=== PATIENT | male | born 1940 | race Caucasian/White ===

== ENCOUNTER 2016-05-19 15:20 | Emergency (ER) | payer OTHER ==
[2016-05-19 16:33] VITALS: BP 150/90; PULSE 88; RESP 18; TEMP 97.3; O2SAT 98
[2016-05-19] MEDS ORDERED: IBUPROFEN 200 MG TAB PO ONE (16:34)
[2016-05-19] MEDS ORDERED: ONDANSETRON DISINTEGRATING 4 MG TAB PO ONE (16:34)
[2016-05-19] MEDS ORDERED: IBUPROFEN 600 MG TAB PO ONE (16:36)
--- NOTE | 2016-05-19 17:15 | UCPHY ---
H & P Patient Type: Established Smoking Status: Never smoked Time Seen by Provider: 05/19/16 16:57 HPI/ROS: CHIEF COMPLAINT: Cough, congestion, sore throat x2 weeks HISTORY OF PRESENT ILLNESS: 75 year old immunocompetent male complaining of 2 weeks sinus pressure, nasal congestion, sore throat, nonproductive cough. He received influenza vaccination 6 days ago notes that his symptoms continue. He denies: Fever, chills, chest pain, back pain, abdominal pain, nausea, vomiting , urinary abnormality, international travel, dyspnea PRIMARY CARE PROVIDER: Dr. Erika Dhaliwal REVIEW OF SYSTEMS: A ten point review of systems was performed and is negative with the exception of the items mentioned in the HPI PAST MEDICAL & SURGICAL HISTORY: No history of chronic pulmonary pathology SOCIAL HISTORY: nonsmoker PHYSICAL EXAM (Prior to examination, patient consented to physical exam, hands were washed and my usual and customary physical exam procedures followed) 1) GENERAL: Well-developed, well-nourished, alert and oriented. Appears Nontoxic, answering questions appropriately. 2) HEAD: Normocephalic, atraumatic 3) HEENT: Pupils equal, round, reactive to light bilaterally. Sclera anicteric. Nasopharynx: Congestion. Oropharynx: Clear, no erythema, no tonsillar enlargement or exudate, no trismus no drooling. Ears bilaterally with clear effusion bilaterally with no bulging or erythema of the tympanic membrane. 4) NECK: Full range of motion, no meningeal signs. Tender to percussion maxillary sinuses. 5) LUNGS: Clear auscultation bilaterally, no wheezes, no rhonchi, no retractions. Breathing comfortably. Few speaking full sentences 6) HEART: Regular rate and rhythm, no murmur, no heave, no gallop. 7) ABDOMEN: No guarding, no rebound, no focal tenderness, negative McBurney's, negative Gloria's, negative Rovsing's, negative peritoneal sign, 8) MUSCULOSKELETAL: No peripheral edema or discoloration. 9) BACK: No CVA tenderness. 10) SKIN: No rash, no petechiae. 11) Psychiatric: Patient is oriented X 3, there is no agitation. DIFFERENTIAL DIAGNOSIS: in no particular include but not limited to meningitis , pneumonia, bronchitis, influenza (Giovana,Sebastian Jovita) Constitutional: Initial Vital Signs Temperature (C) 36.3 C 05/19/16 16:30 Heart Rate 88 05/19/16 16:30 Respiratory Rate 18 05/19/16 16:30 Blood Pressure 150/90 H 05/19/16 16:30 O2 Sat (%) 98 05/19/16 16:30 O2 Delivery Mode Room Air Allergies/Adverse Reactions: No Known Allergies Allergy (Verified 05/19/16 16:29) Home Medications: Medication Instructions Recorded Lipitor 10 mg (RX) 11/09/13 Aspirin 325 mg (OTC) 06/13/15 AZITHROMYCIN [Z-PACK] 500 mg PO DAILY #1 packet 05/19/16 Albuterol [Proventil Inhaler HFA 1 - 2 puffs IH Q4PRN PRN #1 mdi 05/19/16 (*)] Benzonatate [Tessalon Pearles (RX)] 200 mg PO TID PRN #15 cap 05/19/16 MDM/Departure - MDM Medications Given: Discontinued Medications Ibuprofen (Motrin) 400 mg PO EDNOW ONE Stop: 05/19/16 16:35 Last Admin: 05/19/16 16:57 Dose: 400 mg Ondansetron HCl (Zofran Odt) 4 mg PO EDNOW ONE Stop: 05/19/16 16:35 Last Admin: 05/19/16 16:38 Dose: 4 mg ED Course/Re-evaluation: This patient does not appear septic. He has maintain normal saturations, not tachycardic, not tachypneic, lungs are clear bilaterally. given the symptoms have been occurring for 2 weeks, I feel a trial of antibiotics is indicated. We discussed the indications for chest x-ray and informed him that I cannot rule out pneumonia at this time however I am recommending treating him with a course of antibiotics regardless. In addition as he he is maintain normal saturations and breathing comfortably in has clear lungs I do not think that chest imaging indicated. He also notes sinus pressure and discomfort. He has no nuchal rigidity, is answering questions appropriately, has a grossly normal neurologic examination. I think that encephalitis, meningitis, less than likely in this patient. Plan will be discharge with azithromycin, albuterol, Tessalon , strict return precautions and follow up with his primary care provider in 2 days. He and family member feel comfortable being discharged. All questions and concerns addressed by myself (Sebastian Akhtar) The patient was evaluated and managed by the Physician Supply Chain Director, Presley Akhtar. My co-signature indicates that I have reviewed this chart and I agree with the findings and plan of care as documented. I am the secondary supervising physician. (Rebecca Solis) - Depart Disposition: Home, Routine, Self-Care Clinical Impression: Sinusitis Qualifiers: Sinusitis location: maxillary Chronicity: acute Recurrence: not specified as recurrent Qualifier Code: (J01.00) Acute maxillary sinusitis, unspecified Condition: Good Instructions: Sinusitis (ED) Additional Instructions: Go to the closest emergency department if you developed worsening symptoms, if you develop shortness of breath, fevers, change in mental status, or any other symptoms that concern you Prescriptions: Albuterol [Proventil Inhaler HFA (*)] 1 - 2 puffs IH Q4PRN PRN #1 mdi PRN Reason: Cough, Moderate Benzonatate [Tessalon Pearles (RX)] 200 mg PO TID PRN #15 cap PRN Reason: Cough, Moderate AZITHROMYCIN [Z-PACK] 500 mg PO DAILY #1 packet Referrals: Shirley Dhaliwal MD [Primary Care Provider] - 1-2 days without fail - PQRS PQRS Measurement: 134: Depression screening and followup, PRIME MD-PHQ2 (12 years and older) Over the last 2 weeks, how often have you been bothered by any of the following problems? 1. Feeling down, depressed, or hopeless? 2. Little interest or pleasure in doing things? Patient answered no to both 1 and 2 130: Documentation of medications. Reviewed all patient medications, doses, route and frequency. 226: Do you smoke? No. 47: 65 and older: Advanced care planning. Patient has no advanced directive. 51: 18 years old and older with diagnosis of COPD, spirometry performance. Patient has no history of COPD 52: 18 years old and older with COPD and symptoms of COPD or FEV1<60% predicted prescribed a B Agonist. Not applicable (Sebastian Akhtar)
== END 2016-05-19 17:30 | disposition home or self-care (01) ==
LOC: CED 15:20
DX: J01.00 Acute maxillary sinusitis, unspecified (principal)
CPT/HCPCS: 99214-PO

== ENCOUNTER 2016-05-23 16:35 | Emergency (ER) | payer OTHER ==
[2016-05-23 16:47] VITALS: RESP 18; TEMP 98.1
[2016-05-23] MEDS ORDERED: IPRATROPIUM/ALBUTEROL 3 ML DEYVIAL IH ONE (17:17)
--- NOTE | 2016-05-23 17:20 | UCPHY ---
H & P Time Seen by Provider: 05/23/16 17:03 Patient Type: Established HPI/ROS: This patient presents with ongoing cough occasional wheeze from bronchitis. He was diagnosed with bronchitis on May 19 started on Zithromax and albuterol inhaler. He is also prescribed Tessalon Perles. Has had more wheezing and shortness of breath since around 4:00 a.m. today but he has not been using his albuterol inhaler. Apparently he did understand that he should use this for wheezing and cough. He was seen at [facility] Emergency Department given a single dose of steroids had a negative chest x-ray per his early this morning due to the symptoms. ROS: No high fevers or chills. HEENT: Coryza. No other complaints. Pulmonary : No pleuritic pain. No respiratory distress. No significant sputum production. Cardiovascular: No lightheadedness. No diaphoresis. No leg swelling. GI: No nausea vomiting. No complaints 10 point ROS is otherwise negative Past Medical/Surgical History: Dyslipidemia Recent bronchitis as noted in HPI. Otherwise healthy. Smoking Status: Never smoked Physical Exam: Vital signs normal with exception of hypertension 171/88 and O2 sat of 93% room air. General Appearance: Pleasant male in no acute distress appears younger than his stated age Alert, no distress. Eyes: Pupils equal and round no pallor or injection. ENT, Mouth: Mucous membranes moist. Respiratory: Mild bilateral expiratory wheeze and dry cough. No rales or rhonchi. Cardiovascular: Regular rate and rhythm. No JVD. No peripheral edema. Gastrointestinal: Abdomen is soft and nontender, no masses, bowel sounds normal. Neurological: Alert with no focal deficits Skin: Warm and dry, no rashes. Extremities are symmetrical, full range of motion. No calf tenderness DIFFERENTIAL DIAGNOSIS: After history and physical exam differential diagnosis was considered for bronchitis inadequately treated due to patient noncompliance with albuterol, pneumonia, influenza Constitutional: Initial Vital Signs Temperature (C) 36.7 C 05/23/16 16:45 Heart Rate 58 L 05/23/16 16:45 Respiratory Rate 18 05/23/16 16:45 Blood Pressure 171/88 H 05/23/16 16:45 O2 Sat (%) 93 05/23/16 16:45 O2 Delivery Mode Room Air Allergies/Adverse Reactions: No Known Allergies Allergy (Verified 05/19/16 16:29) Home Medications: Medication Instructions Recorded Lipitor 10 mg (RX) 11/09/13 Aspirin 325 mg (OTC) 06/13/15 AZITHROMYCIN [Z-PACK] 500 mg PO DAILY #1 packet 05/19/16 Albuterol [Proventil Inhaler HFA 1 - 2 puffs IH Q4PRN PRN #1 mdi 05/19/16 (*)] Benzonatate [Tessalon Pearles (RX)] 200 mg PO TID PRN #15 cap 05/19/16 Fluticasone Hfa 220 Mcg [Flovent 2 puffs IH DAILY #1 mdi 05/23/16 220 MCG Hfa MDI (*)] Medical Decision Making ED Course/Re-evaluation: This patient appears ray well clinically. I think his symptoms are simply ongoing cough and wheeze because he is not using his albuterol for his bronchitis due to a misunderstanding. We provided a spacer for him to use with his albuterol. Also provide Flovent steroid inhaler to help diminish any persistent inflammation. I do not think he has pneumonia or other complicating factors. - Data Points Medications Given: Discontinued Medications Albuterol/Ipratropium (Duoneb) 3 ml IH EDNOW ONE Stop: 05/23/16 17:18 Last Admin: 05/23/16 17:29 Dose: 3 ml Departure - Departure Disposition: Home, Routine, Self-Care Clinical Impression: Bronchitis Condition: Good Instructions: Acute Bronchitis (ED) Additional Instructions: Diagnosis: Acute bronchitis Plan: Humidifier Use the albuterol with spacer regularly-2 puffs every 4 hours as needed for cough, wheeze or shortness of breath Flovent steroid inhaler in addition Complete your Zithromax. Follow up with primary care physician for any ongoing symptoms Tylenol or ibuprofen if needed for sinus headache. Return for any significant worsening despite treatment plan or go to the emergency department Referrals: Shirley Dhaliwal MD [Primary Care Provider] - As per Instructions Prescriptions: Fluticasone Hfa 220 Mcg [Flovent 220 MCG Hfa MDI (*)] 2 puffs IH DAILY #1 mdi - PQRS PQRS Measurement: 134: Depression screening and followup, PRIME MD-PHQ2 (12 years and older) Over the last 2 weeks, how often have you been bothered by any of the following problems? 1. Feeling down, depressed, or hopeless? 2. Little interest or pleasure in doing things? Patient answered no to both 1 and 2 130: Documentation of medications. Reviewed all patient medications, doses, route and frequency. 226: Do you smoke? [No.] 47: 65 and older: Advanced care planning. Patient designates surrogate decision maker as spouse. 51: 18 years old and older with diagnosis of COPD, spirometry performance. NA 52: 18 years old and older with COPD and symptoms of COPD or FEV1<60% predicted prescribed a B Agonist. NA
[2016-05-23 17:54] VITALS: BP 165/90; PULSE 60; O2SAT 94
== END 2016-05-23 17:54 | disposition home or self-care (01) ==
LOC: CED 16:35
DX: J20.9 Acute bronchitis, unspecified (principal); E78.5 Hyperlipidemia, unspecified
CPT/HCPCS: 99214-PO; G0463-PO

== ENCOUNTER 2018-05-02 16:35 | Emergency (ER) | payer OTHER ==
[2018-05-02] MEDS ORDERED: IPRATROPIUM/ALBUTEROL 3 ML DEYVIAL IH ONE (17:22)
--- NOTE | 2018-05-02 17:36 | EDPHY ---
H & P Time Seen by Provider: 05/02/18 16:40 HPI/ROS: CHIEF COMPLAINT: Congestion, cough HISTORY OF PRESENT ILLNESS: Patient states "I do not feel sick but everything hurts". Per he has been sick for about 4 days. It started with nasal congestion, scratchy throat and progressed in to a persistent cough. He states that his throat, his chest, even his teeth hurt. The onset on was gradual. He denies fever. His cough is nonproductive and dry. He denies shortness of breath. He has had decreased appetite. His seems to think he is getting worse and came in for evaluation. They have tried Sudafed, Delsym , Claritin and Tylenol without much improvement. He has been sleeping a lot. Contents of 10 point review of systems otherwise negative except for what is mentioned in HPI. General Appearance: Alert, no distress. Eyes: Pupils equal and round no pallor or injection. ENT, Mouth: Mucous membranes moist. Respiratory: There are no retractions, lungs are clear with only occasional wheeze heard. Cardiovascular: Regular rate and rhythm. Gastrointestinal: Abdomen is soft and nontender, no masses, bowel sounds normal. Neurological: Alert, oriented, no focal neurologic deficits. Skin: Warm and dry, no rashes. Musculoskeletal: Neck is supple nontender. Extremities are symmetrical, full range of motion, no edema. Psychiatric: Patient is oriented X 3, there is no agitation. Medical/surgical history: High cholesterol, gastroesophageal reflux disease, surgeries include tonsillectomy and prostate surgery. Social history: Nonsmoker. Smoking Status: Never smoked Constitutional: Initial Vital Signs Temperature (C) 36.9 C 05/02/18 16:43 Heart Rate 77 05/02/18 16:43 Respiratory Rate 18 05/02/18 16:43 Blood Pressure 162/88 H 05/02/18 16:43 O2 Sat (%) 94 05/02/18 16:43 O2 Delivery Mode Room Air Allergies/Adverse Reactions: No Known Allergies Allergy (Verified 05/02/18 16:48) Home Medications: Medication Instructions Recorded Lipitor 10 mg (RX) 11/09/13 Albuterol Sulfate [Proair 1 - 2 puffs IH Q4-6PRN PRN #1 05/02/18 Respiclick] aer.[email or web address] Medical Decision Making Differential Diagnosis: Differential diagnosis includes but is not limited to strep pharyngitis, influenza, pneumonia, upper respiratory infection, CHF. After evaluation suspect patient with viral upper respiratory infection without evidence of lower airways disease. Low suspicion for serious bacterial infection. Talked about multiple [id number] means to control symptoms. Did prescribe albuterol inhaler for bronchitic symptoms as this has been effective for this patient in the past. Discussed signs and symptoms to cause revisit to the emergency department. Understands return precautions. Also encouraged follow- up with primary care physician. Stable for discharge. - Data Points Medications Given: Discontinued Medications Albuterol/Ipratropium (Duoneb) 3 ml IH EDNOW ONE Stop: 05/02/18 17:23 Last Admin: 05/02/18 17:29 Dose: 3 ml Point of Care Test Results: Influenza PCR Flu Nasal Swab Collection Date 05/02/18 Flu Nasal Swab Collection Time 17:00 Influenza A Result Not Detected Influenza B Result Not Detected Departure - Departure Clinical Impression: Acute bronchitis Qualifiers: Bronchitis organism: unspecified organism Qualified Code(s): J20.9 - Acute bronchitis, unspecified Condition: Good Instructions: Upper Respiratory Infection (ED), Acute Bronchitis (ED) Additional Instructions: Try the albuterol inhaler as discussed. He can use 1-2 puffs every 4-6 hours as needed for wheezing or cough. Robitussin DM at night will help prevent cough and hopefully allow you would get better sleep. [place] nasal spray can be effective as well. You should see your primary care physician next week for recheck if not improving. If you have worsening symptoms including high fevers, shortness of breath, worsening cough or other concerning changes please return to the emergency department for re-evaluation. Referrals: Shirley Dhaliwal MD [Primary Care Provider] - As per Instructions Prescriptions: Albuterol Sulfate [Proair Respiclick] 1 - 2 puffs IH Q4-6PRN PRN #1 [email or web address] PRN Reason: wheezing, cough
[2018-05-02] MEDS ORDERED: ALBUTEROL INH PREPACK MDI TAKEHOME ONE (18:03)
[2018-05-02 18:23] VITALS: BP 151/86
== END 2018-05-02 18:22 | disposition home or self-care (01) ==
LOC: CED 16:35
DX: J20.9 Acute bronchitis, unspecified (principal)
CPT/HCPCS: 99283-ER

== ENCOUNTER 2018-07-23 22:47 | Emergency (ER) | payer OTHER ==
--- NOTE | 2018-07-23 22:59 | EDPHY ---
H & P Time Seen by Provider: 07/23/18 22:58 HPI/ROS: Chief Complaint: Skin rash HPI: 77-year-old male presenting with 1 day of worsening skin rash on his trunk and upper arms. It is itchy. No history of similar in the past. Patient has started on a new nutritional supplement the contains multiple herbs and vitamins to treat his prediabetes. He started this 2 days ago. No difficulty breathing. No throat swelling. No difficulty swallowing. No shortness of breath. No cough. No fevers or chills. No nausea or vomiting. He has not taken any medicine. ROS: 10 systems were reviewed and were negative except those elements noted in the HPI. PMH: Pre diabetes with a hemoglobin A1c of 6.3 Social History: No smoking, no alcohol, no recreational drug use Family History: non-contributory Physical Exam: Gen: Awake, Alert, No Distress HEENT: Nose: no rhinorrhea Eyes: PERRLA, EOMI Mouth: Moist mucosa Neck: Supple, no JVD Chest: nontender, lungs clear to auscultation Heart: S1, S2 normal, no murmur Abd: Soft, non-tender, no guarding Back: no CVA tenderness, no midline tenderness Ext: Fine maculopapular rash on his upper chest, upper arms and back. It is blanching. There are no petechiae or purpura. Skin: no rash Neuro: CN II-XII intact, Sensation grossly intact, Strength 5/5 in bilateral upper and lower extremities - Personal History Tetanus Vaccine Date: 2013 - Medical/Surgical History Hx Asthma: No Hx Chronic Respiratory Disease: No Hx Diabetes: No Hx Cardiac Disease: No Hx Renal Disease: No Hx Cirrhosis: No Hx Alcoholism: No Hx HIV/AIDS: No Hx Splenectomy or Spleen Trauma: No Other PMH: PROSTATE SURG, TONSIL, HIGH CHOLEST, GERD - Social History Smoking Status: Never smoked Constitutional: Initial Vital Signs Temperature (C) 36.6 C 07/23/18 22:55 Heart Rate 62 07/23/18 22:55 Respiratory Rate 18 07/23/18 22:55 Blood Pressure 144/84 H 07/23/18 22:55 O2 Sat (%) 97 07/23/18 22:55 O2 Delivery Mode Room Air Allergies/Adverse Reactions: No Known Allergies Allergy (Verified 05/02/18 16:48) Home Medications: Medication Instructions Recorded Lipitor 10 mg (RX) 11/09/13 Medical Decision Making ED Course/Re-evaluation: 77-year-old male presenting with skin rash which developed after he started taking a new nutritional supplement. There is no airway involvement. He is certainly nontoxic in appearance. Treat with Benadryl here and reassess. Patient is improved. Itching is improved. No progression of the rash. Will discharge with follow-up with primary care physician. They will continue Benadryl according to [id number] instructions. - Data Points Medications Given: Discontinued Medications Diphenhydramine HCl (Benadryl) 50 mg PO EDNOW ONE Stop: 07/23/18 23:23 Last Admin: 07/23/18 23:26 Dose: 50 mg Departure - Departure Disposition: Home, Routine, Self-Care Clinical Impression: Rash Condition: Good Instructions: Acute Rash (ED) Additional Instructions: You may take Benadryl available [id number] according package instructions for rash or itching. I recommend you discontinue the nutritional supplement you been taking. Follow up with primary care physician in 2-3 days for recheck. Referrals: Dinah Felipe MD [Medical Doctor] - As per Instructions
[2018-07-23] MEDS: diphenhydrAMINE 25 MG CAP PO ONE (23:26)
[2018-07-23 23:42] VITALS: BP 157/80
== END 2018-07-23 23:41 | disposition home or self-care (01) ==
LOC: CED 22:47
DX: R21 Rash and other nonspecific skin eruption (principal)
CPT/HCPCS: 99282-ER